=== PATIENT | male | born 1970 | race African-American/Black ===

== ENCOUNTER 2018-09-01 23:55 | Emergency (ER) | payer SELFPAY ==
[2018-09-02] MEDS ORDERED: CloNIDine HCL 0.1 MG TABLET PO ONE ×2 (00:38→01:30)
--- NOTE | 2018-09-02 00:41 | ED Physician Documentation ---
General Adult - HISTORIAN Historian: patient - HPI Chief Complaint: General Adult Further Comments: yes (47 year old male patient presents with complaint of headache, blurry vision and edema in legs and feet. Patient reports he was on HLD and HTN medications years ago; he stopped taking them. Does not currently have health insurance and has not been seen by PCP in "years". Patient reports he "failed a sleep study", years ago. Does not have a CPAP machine.) - ROS CONST: no problems EYES/ENT: none CVS/RESP: none GI/: none MS/SKIN/LYMPH: ankle swelling NEURO/PSYCH: headache. denies: fainting, dizziness, tingling, numbness, difficulty walking, difficulty with speech, anxiety, depression - PAST HX Past History: hypertension, other (HLD) Surgeries/Procedures: none Allergies/Adverse Reactions: Allergies Allergy/AdvReac Type Severity Reaction Status Date / Time No Known Allergies Allergy Verified 09/02/18 01:03 Home Medications: Ambulatory Orders Medication Instructions Recorded Lisinopril/Hydrochlorothiazide 1 each PO D #30 tablet 09/02/18 [Zestoretic] - SOCIAL HX Smoking History: non-smoker - FAMILY HX Family History: No - REVIEWED ASSESSMENTS Nursing Assessment Reviewed: Yes Vitals Reviewed: Yes Progress - EKG/XRAY/CT EKG: NSR (rate 71) ED Results Lab/Radiology - Orders Orders: ED Orders Category Date Time Status Place IV Lock 1T Care 09/02/18 00:38 Active CHEST 2VIEW [RAD] Stat Exams 09/02/18 00:38 Ordered CBC/PLATELET/DIFF Stat Lab 09/02/18 00:38 Ordered CMP Stat Lab 09/02/18 00:38 Ordered UA W/MICRO IF INDICATED Stat Lab 09/02/18 00:38 Ordered CloNIDine HCL [Catapress] Med 09/02/18 00:38 Once 0.1 mg PO NOW ONE EKG WITH COMPARISON Stat Ther 09/02/18 00:38 Ordered General Adult Physical Exam - PHYSICAL EXAM GENERAL APPEARANCE: mild distress EENT: eye inspection normal, ENT inspection normal, pharynx normal, no signs of dehydration, MARYCHUY, no nystagmus, TM's nml RESPIRATORY: no resp distress, chest non-tender, breath sounds normal CVS: reg rate & rhythm, heart sounds normal, equal pulses, no murmur, no gallop, PMI nml, no JVD, no friction rub, 24 ABDOMEN: soft, no organomegaly, normal bowel sounds, no abdominal bruit, no distension BACK: normal inspection, CVA tenderness (R), CVA tenderness (L) SKIN: normal color, warm/dry, NR, INT, PAL, DR EXTREMITIES: non-tender, normal range of motion, edema (2+ ankles) NEURO: oriented X3, CN's nml as tested, motor nml, sensation nml, mood/affect nml Discharge Clincal Impression: Hypertension Qualifiers: Hypertension type: essential hypertension Qualified Code(s): I10 - Essential (primary) hypertension Prescriptions: Lisinopril/Hydrochlorothiazide [Zestoretic] 1 each PO D #30 tablet Additional Instructions: Start your lisinopril/HCTZ tomorrow. It should be $4.25 at [facility] Make an appointment with your doctor for Thursday. YOU MUST BE RE-EVALUATED! You need lab rechecked and your blood pressure rechecked. Keep a daily blood pressure log - write down the time and reading twice a day. Increase your water intake to 64oz per day. Low sodium diet! Return to Er if you have chest pain, shortness of breath, decreased urine output or worsening of your symptoms. Condition: Stable Disposition: 01 HOME, SELF-CARE Decision to Admit: NO Decision Time: 02:08
[2018-09-02 01:28] LABS: BASOPHILS % 0.3 (0.0-1.5); EOSINOPHILS % 3.3 % (0.0-6.8); MEAN CORPUSCULAR HEMOGLOBIN 24.5 pg (28.0-34.0); MONOCYTES % 5.2 % (0.0-11.0); NEUTROPHILS # 5.9 # k/uL (1.4-7.7)
[2018-09-02] MEDS ORDERED: LISINOPRIL 5 MG TABLET PO ONE (01:30)
[2018-09-02] MEDS ORDERED: LISINOPRIL 5 MG TABLET ONE (01:39)
[2018-09-02 01:47] LABS: eGFR (Non-African) 55
[2018-09-02 02:20] LABS: APPEARANCE,URINE CLEAR (CLEAR); COLOR,URINE YELLOW (YELLOW); OCCULT BLOOD,URINE NEGATIVE (NEGATIVE)
[2018-09-02 02:21] VITALS: BP 173/95
--- NOTE | 2018-09-02 04:25 | Diagnostic Imaging Report ---
ROSALIE SNIDER ([facility]) - ER [facility] [address] [id number] Report Submission Date: Sep 02, 2018 1:23:36 AM [employer] Patient Study Name: JOANNA DAVIS Date: Sep 02, 2018 1:05:54 AM [employer] Modality Type: DX Gender: M Description: CHEST 2VIEW : 70 Institution: [facility] Physician: ROSALIE SNIDER ([facility]) - ER Chest, 2 view History: Cough Findings: The heart size is normal. The lungs are clear. There is no pleural effusion or pneumothorax identified. The osseous structures are normal. Impression: 1. No acute pulmonary disease. Electronically signed on Sep 02, 2018 1:23:36 AM [employer] by: Troy GANDHI
== END 2018-09-02 02:19 | disposition home or self-care (01) ==
LOC: ED 23:55
DX: I10 Essential (primary) hypertension (principal)
CPT/HCPCS: 36415; 71046; 80053; 81002; 85025; 99283; 99284